=== PATIENT | male | born 1985 | race African-American/Black ===

== ENCOUNTER 2020-09-11 20:50 | Emergency (ER) | payer OTHER ==
[~2020-09-11 20:50] MED LIST: FIORICET1 EACH PO; FLEXERIL10 MG PO; IBUPROFEN800 M1 PO; IBUPROFEN800 MG PO
[2020-09-11] MEDS ORDERED: IBUPROFEN800 MG PO (22:41)
[2020-09-11] MEDS ORDERED: CYCLOBENZAPRINE10 MG PO (22:41)
== END 2020-09-11 23:09 | disposition home or self-care (01) ==
LOC: FER 20:50
DX: S46.911A Strain of unspecified muscle, fascia and tendon at shoulder and upper arm level, right arm, initial encounter (principal); M54.2 Cervicalgia; V49.40XA Driver injured in collision with unspecified motor vehicles in traffic accident, initial encounter; Y92.410 Unspecified street and highway as the place of occurrence of the external cause
CPT/HCPCS: 70450; 71045; 72125; 73030